=== PATIENT | male | born 1980 | race Two or more races ===

== ENCOUNTER 2017-10-21 11:27 | Emergency (ER) | payer OTHER ==
[2017-10-21] MEDS: IPRATRPIUM/ALBUTEROL 0.5/2.5MG 3 ML NEBU. NEB ×2 (12:52)
[2017-10-21 13:15] LABS: INFLUENZA A PATIENT POSITIVE (NEGATIVE); INFLUENZA B PATIENT NEGATIVE (NEGATIVE); OBC FLU VALID
[2017-10-21] MEDS: IBUPROFEN 800 MG TABLET. PO ×2 (13:27)
== END 2017-10-21 13:37 | disposition home or self-care (01) ==
LOC: ER 11:27
DX: J09.X2 Influenza due to identified novel influenza A virus with other respiratory manifestations (principal)
CPT/HCPCS: 71046; 87804; 87804-59; 94640; 99285-25; J7620

== ENCOUNTER → 2018-01-31 | Outpatient (CLI) | payer OTHER | END | disposition home or self-care (01) | LOC: CT 10:30 | DX: K40.90 Unilateral inguinal hernia, without obstruction or gangrene, not specified as recurrent (principal); R31.9 Hematuria, unspecified; Z87.891 Personal history of nicotine dependence | CPT/HCPCS: 71250; 74176 ==